=== PATIENT | male | born 1955 | race Caucasian/White ===

== ENCOUNTER 2022-12-31 14:52 | Outpatient (AMB) | payer MEDICARE, OTHER, SELFPAY ==
--- NOTE | 2022-12-31 14:54 | MHC.OFFVIS ---
Intake Intake Visit Reasons: Cough Allergies No Known Allergies Allergy (Verified 12/31/22 15:01) HPI HPI Comments History of Present Illness Details the patient is here for pulmonary evaluation. The patient is a 67-year-old gentleman who was in his usual state health until early to mid October when he started developing worsening nonproductive cough. Moderate to severe. At times the coughing spells would be severe to the point of vomiting. The patient then had to travel to the [facility]. There his symptoms worsen he decided to go to an ER. Had a chest x-ray done on 12/10 in the report demonstrating no acute disease and no evidence of any underlying parenchymal disease. The patient was prescribed Tessalon Perles and no additional testing was done since it was more of a subacute or chronic issue. Therefore the patient was recommended to seek further care with his primary care doctor. He was given a short-acting beta agonist although he has not seen the inhaler has helped relieve the cough. His cough tends to be random but tends to affect him more at nighttime. Although when he falls asleep is able to rest. He is able to lay flat. Denies any significant reflux disease. Does have some nasal congestion. as far as changes in the home there is no new pets or any exposure to mold that is aware of. They did change laundry detergent for the last few weeks around the time that the episode of coughing started. Otherwise they are not aware of any changes. On my evaluation the patient does have significant inflammation of the turbinates and a very erythematous and raw looking posterior pharynx. His respiratory exam is pretty clear without any wheezing crackles more stridor. [facility] Medical History (Updated 12/31/22 @ 21:28 by Esau Ventura MD) Upper airway cough syndrome Chronic allergic rhinitis Chronic cough Review of Systems Const Reports difficulty sleeping and Denies fever(s) ENT Reports change in voice and Reports nasal congestion Card Denies chest pain Resp Denies chest congestion, Reports cough, Denies hemoptysis and Denies wheezing GI Reports no additional complaints, Denies dyspepsia and Denies heartburn Musc Reports no additional complaints Skin/Breast Denies rash Neuro Reports no additional complaints Mir/Lymph Denies lymphadenopathy Aller/Immun Denies wheezing Physical Exam Const General: comfortable HEENT Head: Yes normocephalic Ears: TM abnormal retracted bilateral and scarred bilateral General nose exam: Abnormal mucous membranes and turbinates present erythematous and no epistaxis Throat: Yes posterior oropharynx abnormal (erythematous, friable) Neck Neck: Yes supple Chest Chest palpation & inspection: normal inspection of the chest Resp Effort & Inspection: normal respiratory effort and no stridor Auscultation: clear to auscultation bilaterally, no crackles, no rales, no rhonchi and no wheezes Cardio Rhythm: regular rhythm Heart sounds: S1 normal heart sound present and S2 normal heart sound present GI Palpation (GI): Soft to palpation Skin General skin exam: no rashes or lesions noted Extrem General: Yes no clubbing, cyanosis or edema Assessment & Plan Assessment & Plan (1) Chronic allergic rhinitis: Code(s): J30.9 - Allergic rhinitis, unspecified (2) Chronic cough: Code(s): R05.3 - Chronic cough (3) Upper airway cough syndrome: Code(s): R05.8 - Other specified cough Plan The patient is presenting with a subacute cough. Therefore need to consider upper airway cough syndrome related to underlying allergies and postnasal drip. In addition to this need to consider underlying infection such as pertussis. Less likely reflux related disease. No evidence of any abnormalities in lower respiratory tract. Will go ahead and start him on cough suppressant therapy will treat him for a subacute infection. If the patient is no better additional imaging studies will be warranted. REC: start Fluticasone nasal spray start neti bottle Azithromycin x 5 days cough syrup as needed bloodwork /allergy testing trial Magic mouthwash based the significant erythema of the posterior pharynx PFTs DESTINY as needed F/U 6 weeks Orders: Orders Complete Blood Count Auto Diff Today J30.9 - Allergic rhinitis, unspecified, R05.3 - Chronic cough Immunoglobulin E Today J30.9 - Allergic rhinitis, unspecified, R05.3 - Chronic cough Rast Allergen Today J30.9 - Allergic rhinitis, unspecified, R05.3 - Chronic cough Erythrocyte Sedimentation Rate Today J30.9 - Allergic rhinitis, unspecified, R05.3 - Chronic cough Immunoglobulins,IgG IgA IgM Today J30.9 - Allergic rhinitis, unspecified, R05.3 - Chronic cough Medications: New Magic Mouthwash Diphen/Lido/Antacid 1:1:1 Lidocaine Viscous 2 % 80mL; diphenhydramine 12.5 mg/5 mL 80mL; aluminum-mag hydrox-simeth [id number]/5mL 80mL 5 mL PO QID 14 days PRN 240 mL 0RF throat irritation codeine-guaifenesin 10-100 mg/5 mL 10 mL PO Q6H 10 days PRN 300 mL 0RF cough azithromycin 500 mg PO DAILY 5 days 5 tabs 0RF Coding Level of Care Code New Pt Level 4 (63650) Diagnoses Chronic allergic rhinitis J30.9 Chronic cough R05.3 Upper airway cough syndrome R05.8 Time Spent (min) 38
== END 2022-12-31 15:26 | disposition home or self-care (01) ==
PROVIDERS: PCP Internal Medicine; Visit Provider Hospitalist
DX: J30.9 Allergic rhinitis, unspecified (principal); R05.3 Chronic cough; R05.8 Other specified cough
CPT/HCPCS: 99204

== ENCOUNTER 2022-12-31 14:52 | Outpatient (REF) | payer MEDICARE, OTHER, SELFPAY ==
[2022-12-31 15:42] LABS: MANUAL DIFF FLAG NO
[2022-12-31 16:33] LABS: Basophils Percent Auto 0.4 % (0-2); Eosinophils Absolute Auto 0.2 X10*3/uL (0.0-0.4); Eosinophils Percent Auto 3.8 % (0-4); Hematocrit 39.6 % (42.0-52.0); Hemoglobin 13.5 g/dl (14.0-18.0); Imm Gran Abs Auto 0.02 X10*3/uL (0.00-0.03); Imm Gran Pct Auto 0.4 % (0.0-0.4); Lymphocytes Absolute Auto 1.1 X10*3/uL (1.2-4.9); Lymphocytes Percent Auto 25.3 % (20-40); Mean Corpuscular HGB Conc 34.1 g/dl (31.0-36.0); Mean Corpuscular Hemoglobin 32.6 pg (27.0-33.0); Mean Corpuscular Volume 95.7 fL (80.0-98.0); Mean Platelet Volume 10.1 fL (9.4-12.4); Monocytes Absolute Auto 0.4 X10*3/uL (0.1-1.2); Monocytes Percent Auto 9.8 % (2-11); Neutrophils Absolute Auto 2.7 x10*3/uL (2.0-8.3); Neutrophils Percent Auto 60.3 % (45-73); Platelet Count 220 X10*3/uL (160-400); Red Blood Count 4.14 X10*6/uL (4.60-5.80); Red Cell Distribution Width 14.7 % (11.0-16.0); White Blood Count 4.5 X10*3/uL (4.8-10.8)
[2022-12-31 18:34] LABS: Erythrocyte Sedimentation Rate 33 MM/HR (0-15)
[2023-01-02 07:09] LABS: Immunoglobulin E 30 kU/L (<OR=114)
[2023-01-04 12:04] LABS: IgA 256 mg/dL (70-320); IgG 864 mg/dL (600-1540); IgM 241 mg/dL (50-300)
== END 2022-12-31 14:53 | disposition home or self-care (01) ==
LOC: HO.LAB 14:52
PROVIDERS: PCP Internal Medicine; Visit Provider Hospitalist
DX: J30.9 Allergic rhinitis, unspecified (principal); R05.3 Chronic cough; R05.8 Other specified cough
CPT/HCPCS: 36415; 82784; 82785; 85025; 85652; 86003

== ENCOUNTER 2023-02-28 13:44 | Outpatient (AMB) | payer MEDICARE, SELFPAY ==
--- NOTE | 2023-02-28 13:46 | MHC.OFFVIS ---
Intake Vital Signs 02/28/23 14:01 Weight 251 lb BP 130/74 Pulse 74 Pulse Oximetry (%) 97 Intake Visit Reasons: Cough Allergies No Known Allergies Allergy (Verified 02/28/23 13:57) HPI HPI Comments History of Present Illness Details The patient is here for pulmonary evaluation. The patient is a 67-year-old gentleman who was in his usual state health until early to mid October when he started developing worsening nonproductive cough. Moderate to severe. At times the coughing spells would be severe to the point of vomiting. The patient then had to travel to the [facility]. There his symptoms worsen he decided to go to an ER. Had a chest x-ray done on 12/10 in the report demonstrating no acute disease and no evidence of any underlying parenchymal disease. The patient was prescribed Tessalon Perles and no additional testing was done since it was more of a subacute or chronic issue. Therefore the patient was recommended to seek further care with his primary care doctor. He was given a short-acting beta agonist although he has not seen the inhaler has helped relieve the cough. His cough tends to be random but tends to affect him more at nighttime. Although when he falls asleep is able to rest. He is able to lay flat. Denies any significant reflux disease. Does have some nasal congestion. as far as changes in the home there is no new pets or any exposure to mold that is aware of. They did change laundry detergent for the last few weeks around the time that the episode of coughing started. Otherwise they are not aware of any changes. On my evaluation the patient does have significant inflammation of the turbinates and a very erythematous and raw looking posterior pharynx. His respiratory exam is pretty clear without any wheezing crackles more stridor. 02/28/2023 the patient is here for a pulmonary follow-up visit. The patient overall is a lot better. He states that after few days of taking the medicine he started feeling better. His cough is nearly gone. Still has a postnasal drip and still has some mucus clearance from the throat. His throat was very raw in appearance and I explained to him that this will take some time to heal. We did review the blood work. The patient did have a slight decrease in the white blood cell count although that is his baseline. In addition to that no evidence of any allergies to account for symptoms. This is likely a smoldering infectious process that needed additional therapy. The patient did not get his PFTs but at this point he has a lot better. Will have him continue the new with current nasal therapy. The patient should come back in a year's time with PFTs. If however he is doing well can always cancel that appointment. [facility] Medical History (Updated 02/28/23 @ 20:01 by Esau Ventura MD) Upper airway cough syndrome Chronic allergic rhinitis Chronic cough Review of Systems Const Denies fever(s) ENT Denies change in voice and Reports nasal congestion Card Denies chest pain Resp Denies chest congestion, Reports cough, Denies hemoptysis and Denies wheezing GI Reports no additional complaints, Denies dyspepsia and Denies heartburn Musc Reports no additional complaints Skin/Breast Denies rash Neuro Reports no additional complaints Mir/Lymph Denies lymphadenopathy Aller/Immun Denies wheezing Physical Exam Vital Signs: Last Vital Signs Pulse 74 02/28/23 14:01 BP 130/74 02/28/23 14:01 Pulse Ox 97 02/28/23 14:01 Const General: comfortable HEENT Head: Yes normocephalic Ears: TM abnormal retracted bilateral and scarred bilateral General nose exam: Normal nasal mucous membranes and turbinates present and no epistaxis Throat: Yes posterior oropharynx abnormal (better) Neck Neck: Yes supple Chest Chest palpation & inspection: normal inspection of the chest Resp Effort & Inspection: normal respiratory effort and no stridor Auscultation: clear to auscultation bilaterally, no crackles, no rales, no rhonchi and no wheezes Cardio Rhythm: regular rhythm Heart sounds: S1 normal heart sound present and S2 normal heart sound present GI Palpation (GI): Soft to palpation Skin General skin exam: no rashes or lesions noted Extrem General: Yes no clubbing, cyanosis or edema Assessment & Plan Assessment & Plan (1) Chronic cough: Code(s): R05.3 - Chronic cough (2) Upper airway cough syndrome: Comment: better Code(s): R05.8 - Other specified cough Plan continue Fluticasone nasal spray continue neti bottle as needed cough syrup as needed bloodwork /allergy testing, negative PFTs next visit DESTINY as needed F/U 10-12 months Coding Level of Care Code Est Pt Level 4 (66122) Diagnoses Chronic cough R05.3 Upper airway cough syndrome R05.8 Time Spent (min) 16
[2023-02-28 14:01] VITALS: BP 130/74; PULSE 74; O2SAT 97
== END 2023-02-28 14:12 | disposition home or self-care (01) ==
PROVIDERS: PCP Internal Medicine; Visit Provider Hospitalist
DX: R05.3 Chronic cough (principal); R05.8 Other specified cough
CPT/HCPCS: 99214

== ENCOUNTER → 2023-02-28 13:44 | Outpatient (BNVA) | payer MEDICARE, SELFPAY | PROVIDERS: PCP Internal Medicine; Visit Provider Hospitalist | DX: R05.3 Chronic cough (principal); R05.8 Other specified cough; J30.9 Allergic rhinitis, unspecified | CPT/HCPCS: 99212 ==